=== PATIENT | female | born 1935 | race Caucasian/White ===

== ENCOUNTER → 2016-11-16 | Outpatient (REF) | payer MEDICARE ==
[~2016-11-16] MED LIST: ASPI-479 PO; ATEN1TAB3 PO; CIPR-273 PO; DOXY100C2 PO; GLMP4T PO; HYDR-3702 PO; LOSA50TA2 PO; METF-473; METF500T4 PO; METR500T PO; MULT-593 PO; OMG1KC PO; ROSU10TA PO
== END ==
LOC: LAB 09:35
PROVIDERS: ATTEND Family Medicine
DX: E11.9 Type 2 diabetes mellitus without complications (principal); R79.89 Other specified abnormal findings of blood chemistry
CPT/HCPCS: 83036; 84439; 84443; 84481